=== PATIENT | female | born 1990 | race Two or more races ===

== ENCOUNTER 2021-07-17 16:22 | Emergency (ER) | payer MEDICAID ==
[~2021-07-17] VITALS: Ht 165.1 cm; Wt 113.4 kg
[2021-07-17] MEDS ORDERED: diphenhydrAMINE HCL 50 MG/ML VIAL IM ONE (17:00)
[2021-07-17] MEDS ORDERED: LORAZEPAM INJ 2 MG/ML VIAL IM ONE (17:00)
[2021-07-17] MEDS ORDERED: diphenhydrAMINE HCL 50 MG/ML VIAL ONE (17:09)
[2021-07-17] MEDS ORDERED: LORAZEPAM INJ 2 MG/ML VIAL ONE (17:10)
[2021-07-17] MEDS ORDERED: ONDANSETRON 4 MG TAB.RAPDIS ONE ×3 (17:20→23:49)
[2021-07-17] MEDS ORDERED: ONDANSETRON 4 MG TAB.RAPDIS SL ONE (17:30)
[2021-07-17] MEDS ORDERED: OLANZAPINE 10 MG VIAL IM ONE ×2 (17:39→18:00)
[2021-07-17] MEDS ORDERED: DIAZEPAM 10 MG TABLET ONE (18:11)
--- NOTE | 2021-07-17 18:26 | NUR ---
NNAMDI BUTT HELP DESK ASSOCIATE FROM [facility] TEL [phone]; [phone] [facility] S[facility]IOR [facility] [id number] [id number] SENIOR CARE IS OPEN 24 HR, NO NEED OF A ABAD TO GET IN
[2021-07-17] MEDS ORDERED: DIAZEPAM 5 MG TABLET PO ONE (18:30)
--- NOTE | 2021-07-17 19:21 | NUR ---
vegetable buncher at pt's bedside
--- NOTE | 2021-07-17 19:21 | NUR ---
OFFERED PT URINE CUP BUT NOT ABLE TO URINATE AT THIS TIME; WILL F/U LATER FOR URINE SAMPLE
[2021-07-17 19:56] LABS: CARBON DIOXIDE 27 mmol/L (21-32); CHLORIDE 102 mmol/L (98-107); CREATININE 1.1 mg/dL (0.6-1.3); GLUCOSE 111 mg/dL (74-106); POTASSIUM 3.2 mmol/L (3.5-5.1); SODIUM SERUM 138 mmol/L (136-145); UREA NITROGEN, BLOOD 11 mg/dL (7-18)
--- NOTE | 2021-07-17 20:02 | NUR ---
URINE COLLECTED AND SENT TO LAB
[2021-07-17 20:05] LABS: ALANINE AMINOTRANSFERASE 35 U/L (12-78); ALBUMIN 3.9 g/dL (3.4-5.0); ALCOHOL, BLOOD < 3 mg/dL (0-0); ALKALINE PHOSPHATASE 89 U/L (46-116); ASPARTATE AMINOTRANSFERASE 24 U/L (15-37); BASOPHILS # (AUTO) 0.1 K/uL (0.0-0.2); BASOPHILS % (AUTO) 0.7 % (0.0-2.0); BILIRUBIN,DIRECT 0.1 mg/dL (0.0-0.2); BILIRUBIN,TOTAL 0.6 mg/dL (0.2-1.0); EOSINOPHILS % (AUTO) 0.2 % (0.0-6.0); HEMATOCRIT 41 % (33-45); HEMOGLOBIN 13.7 g/dL (11.5-14.8); LYMPHOCYTES # (AUTO) 1.7 K/uL (0.8-4.8); LYMPHOCYTES % (AUTO) 12.9 % (20.0-44.0); MEAN CORPUSCULAR HGB CONC 33 g/dl (31.0-36.0); MEAN CORPUSCULAR VOLUME 86 fL (82-100); MONOCYTES # (AUTO) 0.6 K/uL (0.1-1.30); MONOCYTES % (AUTO) 4.3 % (2.0-12.0); NEUTROPHILS # (AUTO) 10.9 K/uL (1.8-8.9); NEUTROPHILS % (AUTO) 81.9 % (43.0-81.0); PLATELET COUNT (AUTO) 451 K/uL (150-450); TOTAL PROTEIN, SERUM 8.5 g/dL (6.4-8.2); WHITE BLOOD COUNT (AUTO) 13.4 K/uL (4.3-11.0)
[2021-07-17 20:06] LABS: ACETAMINOPHEN < 0 ug/ml (10-30)
--- NOTE | 2021-07-17 20:18 | NUR ---
COVID SWAB DONE AND SENT TO LAB
[2021-07-17 20:47] LABS: BILIRUBIN,URINE MODERATE (NEGATIVE); COLOR,URINE YELLOW (YELLOW); LEUKOCYTE ESTERASE ,URINE MODERATE (NEGATIVE); NITRITE, URINE NEGATIVE (NEGATIVE); PROTEIN,URINE 30 mg/dl (NEGATIVE); UGLUCOSE NEGATIVE (NEGATIVE); UROBILINOGEN,URINE 0.2 EU/dL (0.2)
[2021-07-17] MEDS ORDERED: POTASSIUM CHLORIDE 20 MEQ TAB.PRT.SR PO ONE (21:00)
[2021-07-17 21:10] LABS: RBC,URINE 0-2 /HPF (0-2)
[2021-07-17 21:11] LABS: BACTERIA,URINE None seen /HPF (None Seen); SQUAMOUS EPITHELIAL CELL,UR Few /HPF (None Seen); URINE AMORPHOUS URATE Many /HPF (None Seen)
[2021-07-18] MEDS ORDERED: ONDANSETRON 4 MG TAB.RAPDIS SL ONE
--- NOTE | 2021-07-18 | NUR ---
CRISIS TEAM PAGED, ETA 1 HR
[2021-07-18] MEDS ORDERED: ONDANSETRON HCL/PF 4 MG/2 ML VIAL ONE (00:44)
--- NOTE | 2021-07-18 00:49 | NUR ---
PT SEEN BY ART, CRISIS TEAM
--- NOTE | 2021-07-18 00:53 | NUR ---
PT DENIES S/I OR H/I
[2021-07-18] MEDS ORDERED: ONDANSETRON HCL/PF 4 MG/2 ML VIAL IM ONE (01:00)
[2021-07-18] MEDS ORDERED: POTASSIUM CHLORIDE 20 MEQ TAB.PRT.SR PO ONE (01:31)
[2021-07-18] MEDS ORDERED: diphenhydrAMINE HCL 50 MG/ML VIAL ONE (01:41)
[2021-07-18] MEDS ORDERED: LORAZEPAM INJ 2 MG/ML VIAL ONE (01:42)
[2021-07-18] MEDS ORDERED: LORAZEPAM INJ 2 MG/ML VIAL IM ONE (02:00)
[2021-07-18] MEDS ORDERED: diphenhydrAMINE HCL 50 MG/ML VIAL IM ONE (02:00)
--- NOTE | 2021-07-18 02:19 | NUR ---
PT HAVING EPISODE OF HALLUCINATIONS, PARANOIA & ANXIETY. PT YELLING REPETITIVELY "GO AWAY FROM ME" WHEN NO ONE IS WITH PT. ADMINISTERED BENEDRYL + ATIVAN ORDERED. WILL CONT TO MONITOR.
--- NOTE | 2021-07-18 08:04 | NUR ---
SPOKE TO NNAMDI BUTT FROM [facility] [phone] AND STATED IF PT IS BEING DISCHARGE THAT SHE IS AVAILABLE TO PICK HER UP AND WILL BE IN THE OFFICE UNTIL [phone]
[2021-07-18] MEDS ORDERED: LORAZEPAM 1 MG TABLET ONE (09:50)
[2021-07-18] MEDS ORDERED: LORAZEPAM 1 MG TABLET PO ONE (10:00)
--- NOTE | 2021-07-18 11:51 | NUR ---
NNAMDI FROM [facility] ARRIVED TO TAKE PT. PT LEFT WALKING AND IN STABLE CONDITION.
[2021-07-18 11:53] VITALS: BP 115/67
== END 2021-07-18 11:53 | disposition home or self-care (01) ==
LOC: ER 16:33
DX: F41.0 Panic disorder [episodic paroxysmal anxiety] (principal); Z59.00 Homelessness unspecified; E66.01 Morbid (severe) obesity due to excess calories; Z68.41 Body mass index [BMI] 40.0-44.9, adult; E87.6 Hypokalemia; D72.829 Elevated white blood cell count, unspecified; D75.839 Thrombocytosis, unspecified; F43.22 Adjustment disorder with anxiety; Z20.822 Contact with and (suspected) exposure to COVID-19; F15.11 Other stimulant abuse, in remission; R94.6 Abnormal results of thyroid function studies
CPT/HCPCS: 36415; 80048; 80076; 80143; 80307; 80320; 81001; 84439; 84443; 84703; 85025; 87086; 87426; 96372 ×3; 99285; C9803; J1200 ×2; J2060 ×2; J2405; J3490; Q0162 ×2; G0480

== ENCOUNTER 2021-07-18 15:18 | Emergency (ER) | payer MEDICAID ==
[~2021-07-18] VITALS: Ht 165.1 cm; Wt 113.9 kg
--- NOTE | 2021-07-18 15:30 | NUR ---
PT UNABLE TO COMMUNICATE. STATES NO PAIN.
--- NOTE | 2021-07-18 15:30 | NUR ---
ER BED 12 - BIB RA 102 FROM [facility] DUE TO ANXIETY/PANIC ATTACK,CONSTANT CRYING AND
[2021-07-18] MEDS ORDERED: HALOPERIDOL LACTATE INJ 5 MG/ML VIAL IM ONE (16:30)
[2021-07-18] MEDS ORDERED: ONDANSETRON 4 MG TAB.RAPDIS SL ONE (16:30)
[2021-07-18] MEDS ORDERED: ONDANSETRON 4 MG TAB.RAPDIS ONE (16:38)
[2021-07-18] MEDS ORDERED: HALOPERIDOL LACTATE INJ 5 MG/ML VIAL ONE (16:38)
--- NOTE | 2021-07-18 18:19 | NUR ---
MOTHER: DANIELLE PALMA [phone]
--- NOTE | 2021-07-18 19:56 | NUR ---
PT IS ASLEEP BUT EASILY AROUSABLE , PT STATES SHE "FEELS MORE CALM AND LESS ANXIOUS". DENIES ANY PAIN AT THIS TIME. WILL CONTINUE TO MONITOR.
--- NOTE | 2021-07-18 22:45 | NUR ---
PT STILL ASLEEP.
--- NOTE | 2021-07-19 01:15 | NUR ---
PROVIDED PT WITH WARM BLANKETS. DENIES ANY PAIN OR ANXIETY. WILL CONTINUE TO MONITOR.
--- NOTE | 2021-07-19 04:24 | NUR ---
PT STILL ASLEEP, WILL CONTINUE TO MONITOR.
--- NOTE | 2021-07-19 06:01 | NUR ---
PT IS NOW AWAKE AND AGITATED. WARM BLANKETS PROVIDED FOR CONFORT. PT IS CRYING AND SCREAMING "LEAVE ME ALONE". MADE AWARE. SITTER WITHIN SIGHT.
[2021-07-19] MEDS ORDERED: OLANZAPINE 10 MG VIAL IM ONE ×2 (06:27→06:30)
--- NOTE | 2021-07-19 08:22 | NUR ---
ASSESSED PT ON BED ASLEEP EASILY AROUSABLE ,AAOX4, NOT IN RESPIRATORY DISTRESS, PT IS CALM AND COOPERATIVE. PT AGREED TO BE DISCHARGED BACK TOHER PLACE. TAXI VOUCHER PROVIDED.
[2021-07-19 08:35] VITALS: BP 127/81
--- NOTE | 2021-07-19 08:35 | NUR ---
Patient discharged to home in stable condition. Written and verbal after care instructions given. Patient verbalizes understanding of instruction.
== END 2021-07-19 08:36 | disposition home or self-care (01) ==
LOC: ER 15:22
DX: R44.0 Auditory hallucinations (principal); F41.9 Anxiety disorder, unspecified; R11.0 Nausea; Z59.00 Homelessness unspecified; F15.10 Other stimulant abuse, uncomplicated
CPT/HCPCS: 96372 ×2; 99285; J1630; J3490; Q0162

== ENCOUNTER 2022-02-11 22:33 | Emergency (ER) | payer MEDICAID ==
[~2022-02-11] VITALS: Ht 165.1 cm; Wt 136.1 kg
--- NOTE | 2022-02-11 23:05 | NUR ---
URINE COLLECTED AND SENT TO LAB
[2022-02-11] MEDS ORDERED: ACETAMINOPHEN ES 500 MG TABLET ONE (23:18)
[2022-02-11] MEDS ORDERED: ONDANSETRON HCL/PF 4 MG/2 ML VIAL ONE (23:18)
[2022-02-11] MEDS ORDERED: ONDANSETRON HCL/PF 4 MG/2 ML VIAL IVP ONE (23:30)
[2022-02-11] MEDS ORDERED: ACETAMINOPHEN 325 MG TABLET PO ONE (23:30)
[2022-02-11] MEDS ORDERED: IV NS 0.9% 1,000 ML BAG IV ONE (23:30)
--- NOTE | 2022-02-11 23:31 | NUR ---
IV LINE ESTABLISHED AT R HAND 20G, BLOOD DRAWN AND SENT TO LAB
--- NOTE | 2022-02-11 23:48 | NUR ---
US AT BEDSIDE
[2022-02-12 00:53] LABS: BASOPHILS % (AUTO) 0.5 % (0.0-2.0); EOSINOPHILS % (AUTO) 1.2 % (0.0-6.0); HEMATOCRIT 33 % (33-45); HEMOGLOBIN 11.3 g/dL (11.5-14.8); LYMPHOCYTES % (AUTO) 18.7 % (20.0-44.0); MEAN CORPUSCULAR HGB CONC 34 g/dl (31.0-36.0); MEAN CORPUSCULAR VOLUME 86 fL (82-100); MONOCYTES # (AUTO) 0.7 K/uL (0.1-1.30); MONOCYTES % (AUTO) 6.8 % (2.0-12.0); NEUTROPHILS # (AUTO) 7.9 K/uL (1.8-8.9); NEUTROPHILS % (AUTO) 72.8 % (43.0-81.0); PLATELET COUNT (AUTO) 362 K/uL (150-450); RED BLOOD CELL COUNT(AUTO) 3.87 MIL/uL (4.0-5.2); WHITE BLOOD COUNT (AUTO) 10.8 K/uL (4.3-11.0)
[2022-02-12 01:04] LABS: CREATININE 0.6 mg/dL (0.6-1.3); POTASSIUM 3.9 mmol/L (3.5-5.1)
[2022-02-12 01:09] LABS: ALBUMIN 2.7 g/dL (3.4-5.0); BILIRUBIN,DIRECT 0.1 mg/dL (0.0-0.2); BILIRUBIN,TOTAL 0.3 mg/dL (0.2-1.0); TOTAL PROTEIN, SERUM 6.5 g/dL (6.4-8.2)
[2022-02-12 01:13] LABS: BILIRUBIN,URINE 1+ (NEGATIVE); COLOR,URINE YELLOW (YELLOW); LEUKOCYTE ESTERASE ,URINE 2+ (NEGATIVE); NITRITE, URINE NEGATIVE (NEGATIVE); PROTEIN,URINE 1+ mg/dl (NEGATIVE); UGLUCOSE NEGATIVE (NEGATIVE)
[2022-02-12 01:24] LABS: BACTERIA,URINE Moderate /HPF (None Seen); SQUAMOUS EPITHELIAL CELL,UR Few /HPF (None Seen); WBC,URINE 51-80 /HPF (0-3)
[2022-02-12] MEDS ORDERED: NITR100C6 PO (01:29)
[2022-02-12] MEDS ORDERED: NITROFURANTOIN/MONOHYDRATE MACROCRYSTALS 100 MG CAPSULE PO ONE (01:30)
[2022-02-12] MEDS ORDERED: NITROFURANTOIN/MONOHYDRATE MACROCRYSTALS 100 MG CAPSULE ONE (01:39)
--- NOTE | 2022-02-12 01:53 | NUR ---
Patient discharged to home in stable condition. Written and verbal after care instructions given. Patient verbalizes understanding of instruction. Pt ambulatory with a steady gait
[2022-02-12 01:55] VITALS: BP 112/55
== END 2022-02-12 01:56 | disposition home or self-care (01) ==
LOC: ER 22:49
DX: O23.40 Unspecified infection of urinary tract in pregnancy, unspecified trimester (principal); O26.899 Other specified pregnancy related conditions, unspecified trimester; N39.0 Urinary tract infection, site not specified; R10.9 Unspecified abdominal pain; Z3A.00 Weeks of gestation of pregnancy not specified; F41.9 Anxiety disorder, unspecified; Z87.442 Personal history of urinary calculi; Z79.899 Other long term (current) drug therapy
CPT/HCPCS: 99284; 96374; 76770; 96361; 85025; 80048; 87086; 83690; 80076; 84703; 81001; 36415; 85730; J2405; J7030

== ENCOUNTER 2022-02-14 08:59 | Emergency (ER) | payer MEDICAID ==
[~2022-02-14] VITALS: Ht 165.1 cm; Wt 124.7 kg
[~2022-02-14 08:59] MED LIST: NITR100C6 PO
--- NOTE | 2022-02-14 09:10 | NUR ---
RECEIVED PT 31 YRS FEMALE CAME BY CHENG C/O LOWER BACK PAIN AND ABDOMINAL PAIN FOR ONE WEEK AWKE AND ALERT
--- NOTE | 2022-02-14 09:20 | NUR ---
INSERTED ANGO CATHETER G 20 ON RT AC BLOOD DROW AND SENT TO LAB
[2022-02-14] MEDS ORDERED: ONDANSETRON HCL/PF 4 MG/2 ML VIAL ONE (09:29)
[2022-02-14] MEDS ORDERED: ONDANSETRON HCL/PF 4 MG/2 ML VIAL IVP ONE (09:30)
[2022-02-14] MEDS ORDERED: KETOROLAC TROMETHAMINE INJ 30 MG/ML VIAL IV ONE (09:30)
[2022-02-14] MEDS ORDERED: IV NS 0.9% 1,000 ML BAG IV ONE (09:30)
[2022-02-14 09:39] LABS: BASOPHILS % (AUTO) 0.4 % (0.0-2.0); EOSINOPHILS % (AUTO) 0.3 % (0.0-6.0); HEMATOCRIT 34 % (33-45); HEMOGLOBIN 11.9 g/dL (11.5-14.8); LYMPHOCYTES # (AUTO) 1.5 K/uL (0.8-4.8); LYMPHOCYTES % (AUTO) 15.1 % (20.0-44.0); MEAN CORPUSCULAR HGB CONC 35 g/dl (31.0-36.0); MEAN CORPUSCULAR VOLUME 84 fL (82-100); MONOCYTES # (AUTO) 0.5 K/uL (0.1-1.30); MONOCYTES % (AUTO) 5.5 % (2.0-12.0); NEUTROPHILS # (AUTO) 7.6 K/uL (1.8-8.9); NEUTROPHILS % (AUTO) 78.7 % (43.0-81.0); PLATELET COUNT (AUTO) 389 K/uL (150-450); RED BLOOD CELL COUNT(AUTO) 4.09 MIL/uL (4.0-5.2); WHITE BLOOD COUNT (AUTO) 9.7 K/uL (4.3-11.0)
--- NOTE | 2022-02-14 09:45 | NUR ---
PT SAID 16 WEEK PREGNENT BLOOD DROW FOR as odrer
[2022-02-14 09:50] LABS: CALCIUM, SERUM 9.4 mg/dL (8.5-10.1); CREATININE 0.7 mg/dL (0.6-1.3); POTASSIUM 3.3 mmol/L (3.5-5.1)
[2022-02-14 09:53] LABS: BILIRUBIN,DIRECT 0.1 mg/dL (0.0-0.2); BILIRUBIN,TOTAL 0.3 mg/dL (0.2-1.0); TOTAL PROTEIN, SERUM 6.7 g/dL (6.4-8.2)
[2022-02-14] MEDS ORDERED: CEFTRIAXONE 1GM BAG (ER ONLY) 50 ML IV ONE (09:54)
[2022-02-14] MEDS ORDERED: MORPHINE SULFATE INJ 4 MG/ML DISP.SYRIN ONE (09:55)
[2022-02-14] MEDS ORDERED: CEFTRIAXONE 1 G in IV D5W 50 ML IV ONE (10:00)
[2022-02-14] MEDS ORDERED: MORPHINE SULFATE INJ 2 MG/ML DISP.SYRIN IV ONE (10:00)
[2022-02-14] MEDS ORDERED: HALOPERIDOL LACTATE INJ 5 MG/ML VIAL ONE (10:19)
[2022-02-14] MEDS ORDERED: HALOPERIDOL LACTATE INJ 5 MG/ML VIAL IV ONE (10:30)
[2022-02-14] MEDS ORDERED: POTASSIUM CHLORIDE 20 MEQ TAB.PRT.SR PO ONE ×2 (10:30→10:49)
--- NOTE | 2022-02-14 10:43 | NUR ---
PELVIC US DONE AT BED SIDE
--- NOTE | 2022-02-14 11:30 | NUR ---
VITAL SIGNS WITHIN NORMAL LIMITS.
--- NOTE | 2022-02-14 12:00 | NUR ---
AWAITING DIPOSITION OF PATIENT BY .
[2022-02-14] MEDS ORDERED: TYL2T PO (12:10)
[2022-02-14] MEDS ORDERED: ONDA4TAB5 PO (12:10)
--- NOTE | 2022-02-14 12:40 | NUR ---
IV removed. Catheter intact and site benign. Pressure and 4x4 applied to site. No bleeding noted.
--- NOTE | 2022-02-14 12:50 | NUR ---
voding freely UA SENT TO LAB
[2022-02-14] MEDS ORDERED: ACETAMINOPHEN ES 500 MG TABLET ONE (13:05)
--- NOTE | 2022-02-14 13:10 | NUR ---
Patient discharged to home in stable condition. Written and verbal after care instructions given. Patient verbalizes understanding of instruction.
[2022-02-14] MEDS ORDERED: PHEN-705 PO (13:17)
[2022-02-14 13:24] LABS: BILIRUBIN,URINE NEGATIVE (NEGATIVE); COLOR,URINE YELLOW (YELLOW); LEUKOCYTE ESTERASE ,URINE 2+ (NEGATIVE); NITRITE, URINE NEGATIVE (NEGATIVE); PROTEIN,URINE 1+ mg/dl (NEGATIVE); UGLUCOSE NEGATIVE (NEGATIVE); UROBILINOGEN,URINE 0.2 EU/dL (0.2)
[2022-02-14 13:27] VITALS: BP 131/85
[2022-02-14] MEDS ORDERED: ACETAMINOPHEN 325 MG TABLET PO ONE (13:30)
[2022-02-14 13:41] LABS: BACTERIA,URINE Few /HPF (None Seen); RBC,URINE 0-2 /HPF (0-2); SQUAMOUS EPITHELIAL CELL,UR Many /HPF (None Seen)
== END 2022-02-14 13:27 | disposition home or self-care (01) ==
LOC: ER 09:16
DX: O23.42 Unspecified infection of urinary tract in pregnancy, second trimester (principal); O26.892 Other specified pregnancy related conditions, second trimester; N39.0 Urinary tract infection, site not specified; R30.0 Dysuria; Z3A.19 19 weeks gestation of pregnancy; F41.9 Anxiety disorder, unspecified; Z87.442 Personal history of urinary calculi; Z79.899 Other long term (current) drug therapy
CPT/HCPCS: 99285; 96365; 76805; 96375; 85025; 80048; 87086; 83690; 80076; 84703; 81001; 36415; 84702; J1630; J2270; J0696 ×2; J2405; J7060; J7030